=== PATIENT | female | born 1930 | race Caucasian/White ===

== ENCOUNTER 2017-12-07 11:14 | Emergency (ER) | payer MEDICARE, OTHER ==
--- NOTE | 2017-12-07 11:43 | EDM.PDOC ---
ED HPI GENERAL MEDICAL PROBLEM - General Chief Complaint: Genitourinary Problem Stated Complaint: POSSIBLE UTI Time Seen by Provider: 12/07/17 11:34 - History of Present Illness INITIAL COMMENTS - FREE TEXT/NARRATIVE: HISTORY AND PHYSICAL: History of present illness: Patient is 87-year-old female who is here visiting family from [place] and presents with an almost 2 week history of UTI symptoms. The patient says she has had UTIs before and she has similar symptoms of urgency all volumes of urine output and discomfort. She has no flank pain no fevers no chills no nausea vomiting or diarrhea and no sensation of urinary retention. The patient took some of her daughter's amoxicillin for 5 days thinking it might help and she can prevent an ER visit but it did not work. She has not tried any over-the- counter meds. He denies any hematuria and has no other systemic complaints. She has a history of hypertension and hypothyroidism in the past and says that she had "her bladder fall" and she did see a specialist about possible bladder suspension but he did not eat advised that. She also has a history of a GFR around 50 and is not worried about that. Review of systems: As per history of present illness and below otherwise all systems reviewed and negative. Past medical history: As per history of present illness and as reviewed below otherwise noncontributory. Surgical history: As per history of present illness and as reviewed below otherwise noncontributory. Social history: No reported history of drug or alcohol abuse. Family history: As per history of present illness and as reviewed below otherwise noncontributory. Physical exam: General: Well-developed well-nourished female who is nontoxic and vital signs are noted by me. I addressed with the patient her slightly elevated heart rate and her blood pressure and she says she is very anxious being here HEENT: Atraumatic, normocephalic, negative for conjunctival pallor or scleral icterus, mucous membranes moist, throat clear, neck supple, nontender, trachea midline. Lungs: Clear to auscultation, breath sounds equal bilaterally, chest nontender. Heart: S1S2, regular and rhythm no overt murmurs Abdomen: Soft, nondistended, nontender. NABS Negative for costovertebral tenderness. Pelvis: Stable nontender. Genitourinary: Deferred. Rectal: Deferred. Extremities: Atraumatic, negative for cords or calf pain. Neurovascular unremarkable. Neuro: Awake, alert, oriented. Cranial nerves II through XII unremarkable. Cerebellum unremarkable. Motor and sensory unremarkable throughout. Exam nonfocal. Diagnostics: UA urine culture The patient was offered lab tests prefers Therapeutics: [] I discussed with the patient that some of her markers on her UA are consistent with UTI and others are not. It is likely an early UTI or partially treated 1 and she did take amoxicillin. I will send a urine culture and I will place her on Cipro and Pyridium. I did discuss with the patient her vital signs and she states that she is nervous about being here and does not want further intervention. Impression: UTI, partially treated with persistent symptoms Definitive disposition and diagnosis as appropriate pending reevaluation and review of above. Bladder Pain Score (Numeric/FACES): 5 - Related Data Allergies Allergy/AdvReac Type Severity Reaction Status Date / Time No Known Allergies Allergy Verified 12/07/17 11:33 Home Meds: Home Meds Levothyroxine [Sythroid] 100 mcg PO DAILY 12/07/17 [History] Lisinopril 20 mg PO DAILY 12/07/17 [History] amLODIPine [Norvasc] 2.5 mg PO 12/07/17 [History] ED ROS GENERAL - Review of Systems Review Of Systems: ROS reveals no pertinent complaints other than HPI. ED EXAM, GENERAL - Physical Exam Exam: See Below (See dictation) Course - Vital Signs Last Recorded V/S: Last Vital Signs Temp 36.3 C 12/07/17 11:35 Pulse 109 H 12/07/17 11:35 Resp 18 12/07/17 11:35 BP 211/97 H 12/07/17 11:35 Pulse Ox 95 12/07/17 11:35 - Orders/Labs/Meds Orders: Active Orders 24 hr Category Date Time Status CULTURE URINE [RM] Stat Lab 12/07/17 11:30 Ordered UA W/MICROSCOPIC [URIN] Stat Lab 12/07/17 11:30 Ordered Labs: Laboratory Tests 12/07/17 Range/Units 11:30 Urine Color YELLOW Urine Appearance SLT CLOUDY Urine pH 6.5 (5.0-8.0) Ur Specific [place] <= 1.005 (1.001-1.035) Urine Protein NEGATIVE (NEGATIVE) mg/dL Urine Glucose (UA) NEGATIVE (NEGATIVE) mg/dL Urine Ketones NEGATIVE (NEGATIVE) mg/dL Urine Occult Blood NEGATIVE (NEGATIVE) Urine Nitrite NEGATIVE (NEGATIVE) Urine Bilirubin NEGATIVE (NEGATIVE) Urine Urobilinogen 0.2 (<2.0) EU/dL Ur Leukocyte Esterase MODERATE (NEGATIVE) Urine RBC 0-2 (0-2/HPF) Urine WBC 1-3 (0-5/HPF) Ur Epithelial Cells OCCASIONAL (NONE-FEW) Urine Bacteria RARE (NEGATIVE) Departure - Departure Time of Disposition: 12:18 Disposition: Home, Self-Care 01 Condition: Good Clinical Impression: UTI, Urinary tract infectious disease - Discharge Information Referrals: PCP,None [Primary Care Provider] - Forms: ED Department Discharge Additional Instructions: The following information is given to patients seen in the emergency department who are being discharged to home. This information is to outline your options for follow-up care. We provide all patients seen in our emergency department with a follow-up referral. The need for follow-up, as well as the timing and circumstances, are variable depending upon the specifics of your emergency department visit. If you don't have a primary care physician on staff, we will provide you with a referral. We always advise you to contact your personal physician following an emergency department visit to inform them of the circumstance of the visit and for follow-up with them and/or the need for any referrals to a consulting specialist. The emergency department will also refer you to a specialist when appropriate. This referral assures that you have the opportunity for followup care with a specialist. All of these measure are taken in an effort to provide you with optimal care, which includes your followup. Under all circumstances we always encourage you to contact your private physician who remains a resource for coordinating your care. When calling for followup care, please make the office aware that this follow-up is from your recent emergency room visit. If for any reason you are refused follow-up, please contact the [facility] emergency department at and ask to speak to the emergency department charge nurse. [facility] Primary care- Internal Medicine and Family [address] [address] Push hydration and take medication as directed. Please call and schedule a follow-up appointment in our clinic if you plan to stay in the area and he will be contacted if the urine culture mandates any change in care plan. To ER as needed and as discussed. - My Orders Last 24 Hours: My Active Orders 12/07/17 11:30 CULTURE URINE [RM] Stat - Assessment/Plan Last 24 Hours: My Active Orders 12/07/17 11:30 CULTURE URINE [RM] Stat
== END 2017-12-07 12:35 | disposition home or self-care (01) ==
LOC: MW.ED 11:14
DX: N39.0 Urinary tract infection, site not specified (principal)
CPT/HCPCS: 81001; 87086; 99283